=== PATIENT | male | born 1990 | race Caucasian/White ===

== ENCOUNTER 2023-08-20 05:27 | Inpatient (IN) | payer OTHER ==
[2023-08-14 14:07] LABS: BASOPHILS % (AUTO) 0.5 % (0-1); EOSINOPHILS # (AUTO) 0.2 X10'3 (0-0.9); EOSINOPHILS % (AUTO) 2.1 % (0-6); LYMPHOCYTES # (AUTO) 2.5 X10'3 (1.1-4.8); MEAN CORPUSCULAR HEMOGLOBIN 29.1 PG (27.0-31.0); MEAN CORPUSCULAR HGB CONC 33.8 g/dL (33.0-36.5); MEAN CORPUSCULAR VOLUME 86.1 FL (78-98); MEAN PLATELET VOLUME 10.3 FL (7.4-10.4); MONOCYTES # (AUTO) 0.6 X10'3 (0-0.9); MONOCYTES % (AUTO) 6.6 % (2-12); NEUTROPHILS # (AUTO) 5.1 X10'3 (1.8-7.7); NEUTROPHILS % (AUTO) 60.8 % (42-75); PRE OP HEMATOCRIT 47.1 % (42.0-52.0); PRE OP HEMOGLOBIN 15.9 g/dL (14.0-17.9); PRE OP PLATELET COUNT 179 X10'3 (140-440); PRE OP WHITE BLOOD COUNT 8.5 10'3 (4.8-10.8); RED BLOOD COUNT 5.47 X10'6 (4.70-6.10); RED CELL DISTRIBUTION WIDTH 14.7 % (11.5-14.5)
[2023-08-14 14:18] LABS: PRE OP PROTIME 10.5 SECONDS (9.0-12.0)
[2023-08-14 14:28] LABS: ALBUMIN 3.5 G/DL (3.4-5.0); ALKALINE PHOSPHATASE 53 IU/L (46-116); BLOOD UREA NITROGEN 14 MG/DL (7-18); BUN/CREATININE RATIO 14.4 (10.0-20.0); CALCIUM 9.1 MG/DL (8.5-10.1); CHLORIDE 107 MMOL/L (99-107); CREATININE 0.97 MG/DL (0.60-1.10); PRE OP ALT 33 U/L (30-65); PRE OP ANION GAP 9 (8-16); PRE OP AST 22 U/L (10-37); PRE OP BILIRUB, TOTAL 0.9 MG/DL (0.0-1.0); PRE OP GLUCOSE 140 MG/DL (70-104); PRE OP POTASSIUM 3.4 MMOL/L (3.4-5.1); PRE OP SODIUM 141 MMOL/L (135-145); TOTAL CARBON DIOXIDE 25.3 MMOL/L (24-32); TOTAL PROTEIN 7.1 G/DL (6.4-8.2); eGFR 90 ML/MIN
[2023-08-14 14:41] LABS: HEMOGLOBIN A1C 5.2 % (4.5-6.2)
[2023-08-14 15:06] LABS: BILIRUBIN,URINE NEGATIVE (Neg); COLOR,URINE YELLOW (Yellow); GLUCOSE, URINE NEGATIVE (Neg); KETONES,URINE NEGATIVE (Neg); LEUKOCYTE ESTERASE ,URINE NEGATIVE (Neg); NITRITES, URINE NEGATIVE (Neg); OCCULT BLOOD,URINE NEGATIVE (Neg); PROTEIN,URINE NEGATIVE (Neg); UROBILINOGEN,URINE 0.2 E.U/dL (0.2-1.0)
[2023-08-14 15:17] LABS: UA COLLECTION TYPE VOIDED
[2023-08-14 15:18] LABS: CLARITY,URINE CLEAR (Clear)
[2023-08-18 06:18] LABS: ABG HCO3 20.6 mmol/L (22.0-26.0); ABG OXYGEN SATURATION 96.9 % (94-97); ABG PCO2 (T) 33.2 mmHg (35.0-48.0); ABG PO2 (T) 84.1 mmHg (75.0-100.0); ALLEN'S TEST POSITIVE; FCOHb 0.5 % (0.0-3.9); FHHb 3.1 % (0.0-5.0); FMetHb 0.3 % (0.0-1.5); FO2Hb 96.1 % (94-97); MODE ROOM AIR; TOTAL HEMOGLOBIN 16.7 G/dl (14.0-17.9)
[2023-08-20] VITALS (28 sets, daily range): BP systolic 102–159; BP diastolic 50–86; PULSE 68–96; RESP 12–24; TEMP 97.7; O2SAT 91–99
[~2023-08-20] VITALS: Ht 182.9 cm; Wt 130.3 kg
[~2023-08-20 05:27] MED LIST: NO HOME MEDS; ringers solution, lacted 1,000 ML IV SCH
[2023-08-20] MEDS ORDERED: vancomycin 1,500 MG in NS 300ml IV soln IV ONE (05:30)
[2023-08-20] MEDS ORDERED: ceFAZolin inj. 3,000 MG in normal saline 100ml IV soln 100 ML IV ONE (05:30)
[2023-08-20] MEDS ORDERED: dextrose 50%-water 50ml dispensing syringe IV PRN ×2 (05:30→11:00)
[2023-08-20] MEDS ORDERED: Insulin Reg/NS 100units/100mL 100 ML IV SCH (05:30)
[2023-08-20] MEDS ORDERED: LORazepam 2 mg/ml vial IV ONE (05:30)
[2023-08-20] MEDS ORDERED: mupirocin 2% nasal ointment 1gm UD NS ONE (05:30)
[2023-08-20] MEDS ORDERED: metoprolol tartrate 12.5mg (1/2 tablet) PO ONE (05:30)
[2023-08-20] MEDS ORDERED: famotidine 20mg tablet PO ONE (05:30)
[2023-08-20] MEDS ORDERED: ceFAZolin 1000mg inj ONE (06:54)
[2023-08-20] MEDS ORDERED: BUPIVAcaine 0.5% inj/PF 0 ML ONE (06:54)
[2023-08-20] MEDS ORDERED: epiNEPHrine 1 mg/ml inj ONE (06:54)
[2023-08-20] MEDS ORDERED: vancomycin 1,000mg inj ONE (06:54)
[2023-08-20] MEDS ORDERED: MIDAZolam 1mg/ml 10ml vial ONE (07:42)
[2023-08-20] MEDS ORDERED: SUfentanil 50mcg/ml 1ml amp IV ONE ×2 (07:43)
[2023-08-20] MEDS ORDERED: rocuronium 10mg/ml inj IV ONE ×4 (07:43→08:55)
[2023-08-20] MEDS ORDERED: propofol inj 20 ML IV ONE (07:45)
[2023-08-20] MEDS ORDERED: aminocaproic acid 250 MG/1 ML inj. ONE (07:51)
[2023-08-20] MEDS ORDERED: DOBUTamine/D5W 500mg/250ml premix IV ONE (07:51)
[2023-08-20] MEDS ORDERED: protamine sulf. 10mg/ml inj. IV ONE (07:51)
[2023-08-20] MEDS ORDERED: sevoflurane 250ml liquid IH ONE (07:51)
[2023-08-20 08:38] LABS: ABG BASE EXCESS -3.5 mmol/L (-2.0-2.0); ABG HCO3 22.7 mmol/L (22.0-26.0); ABG OXYGEN SATURATION 90.5 % (94-97); ABG PCO2 45.2 mmHg (35.0-48.0); ABG PH 7.319 (7.340-7.440); ABG PO2 61.7 mmHg (75.0-100.0); CL (ABG) 105 mmol/L (99-107); FCOHb 0.1 % (0.0-3.9); FHHb 9.5 % (0.0-5.0); FMetHb 0.3 % (0.0-1.5); FO2Hb 90.1 % (94-97); GLUCOSE (ABG) 95 mg/dl (70-104); IONIZED CA (ABG) 1.16 mmol/L (1.10-1.30); TOTAL HEMOGLOBIN 14.6 G/dl (14.0-17.9)
[2023-08-20 09:09] LABS: ABG BASE EXCESS VENOUS -5.6 mmol/L (-2.0 - 2.0); ABG HCO3 VENOUS 21.9 mmol/L (21.0-28.0); ABG OXYGEN SATURATION VENOUS 76.4 % (75 - 99 %); ABG PCO2 VENOUS 50.9 mmHg (41.0-54.0); ABG PH (VENOUS) 7.252 (7.310-7.450); ABG PO2 VENOUS 44.1 mmHg (25.0-35.0); CL (ABG) 105 mmol/L (99-107); FHHb VENOUS 23.6 %; FMetHb VENOUS 0.1 % (0.0 - 0.5); FO2Hb VENOUS 76.3 %; GLUCOSE (ABG) 91 mg/dl (70-104); IONIZED CA (ABG) 1.16 mmol/L (1.10-1.30); K (ABG) 4.3 mmol/L (3.5-5.1); TOTAL HEMOGLOBIN 14.4 G/dl (14.0-17.9)
[2023-08-20 09:30] LABS: ABG BASE EXCESS VENOUS -4.1 mmol/L (-2.0 - 2.0); ABG HCO3 VENOUS 22.3 mmol/L (21.0-28.0); ABG PCO2 VENOUS 46.1 mmHg (41.0-54.0); ABG PH (VENOUS) 7.303 (7.310-7.450); CL (ABG) 104 mmol/L (99-107); FCOHb VENOUS 0.2 %; FMetHb VENOUS 0.1 % (0.0 - 0.5); FO2Hb VENOUS 86.7 %; GLUCOSE (ABG) 90 mg/dl (70-104); IONIZED CA (ABG) 1.08 mmol/L (1.10-1.30); K (ABG) 5.7 mmol/L (3.5-5.1)
[2023-08-20 09:33] LABS: ABG BASE EXCESS -2.3 mmol/L (-2.0-2.0); ABG HCO3 23.9 mmol/L (22.0-26.0); ABG OXYGEN SATURATION 98.9 % (94-97); ABG PCO2 46.6 mmHg (35.0-48.0); ABG PH 7.327 (7.340-7.440); ABG PO2 399.7 mmHg (75.0-100.0); CL (ABG) 105 mmol/L (99-107); FCOHb 0.2 % (0.0-3.9); FHHb 1.1 % (0.0-5.0); FMetHb 0.1 % (0.0-1.5); FO2Hb 98.6 % (94-97); GLUCOSE (ABG) 97 mg/dl (70-104); IONIZED CA (ABG) 1.08 mmol/L (1.10-1.30); K (ABG) 5.8 mmol/L (3.5-5.1); TOTAL HEMOGLOBIN 12.1 G/dl (14.0-17.9)
[2023-08-20 10:00] LABS: ABG BASE EXCESS -0.9 mmol/L (-2.0-2.0); ABG HCO3 25.7 mmol/L (22.0-26.0); ABG OXYGEN SATURATION 98.7 % (94-97); ABG PCO2 50.7 mmHg (35.0-48.0); ABG PH 7.322 (7.340-7.440); ABG PO2 259.9 mmHg (75.0-100.0); CL (ABG) 105 mmol/L (99-107); FCOHb 0.2 % (0.0-3.9); FHHb 1.3 % (0.0-5.0); FMetHb 0.1 % (0.0-1.5); FO2Hb 98.4 % (94-97); GLUCOSE (ABG) 146 mg/dl (70-104); IONIZED CA (ABG) 1.07 mmol/L (1.10-1.30); K (ABG) 5.7 mmol/L (3.5-5.1); TOTAL HEMOGLOBIN 12.5 G/dl (14.0-17.9)
[2023-08-20 10:16] LABS: ACT @ 1.70 U 272 SEC (193-297); ACT @ 2.84 U 371 SEC (260-420); BASELINE ACT 137 SEC (101-148)
[2023-08-20 10:19] LABS: ABG HCO3 25.4 mmol/L (22.0-26.0); ABG OXYGEN SATURATION 98.9 % (94-97); ABG PCO2 49.6 mmHg (35.0-48.0); ABG PH 7.327 (7.340-7.440); ABG PO2 201.9 mmHg (75.0-100.0); CL (ABG) 102 mmol/L (99-107); FCOHb 0.3 % (0.0-3.9); FHHb 1.1 % (0.0-5.0); FMetHb 0.3 % (0.0-1.5); FO2Hb 98.3 % (94-97); GLUCOSE (ABG) 168 mg/dl (70-104); IONIZED CA (ABG) 1.06 mmol/L (1.10-1.30); K (ABG) 5.6 mmol/L (3.5-5.1); TOTAL HEMOGLOBIN 11.7 G/dl (14.0-17.9)
[2023-08-20 10:48] LABS: ABG BASE EXCESS VENOUS -2.6 mmol/L (-2.0 - 2.0); ABG HCO3 VENOUS 24.1 mmol/L (21.0-28.0); ABG OXYGEN SATURATION VENOUS 78.6 % (75 - 99 %); ABG PCO2 VENOUS 49.3 mmHg (41.0-54.0); ABG PH (VENOUS) 7.307 (7.310-7.450); ABG PO2 VENOUS 42.7 mmHg (25.0-35.0); CL (ABG) 104 mmol/L (99-107); FCOHb VENOUS 0.3 %; FHHb VENOUS 21.3 %; FMetHb VENOUS 0.3 % (0.0 - 0.5); FO2Hb VENOUS 78.1 %; GLUCOSE (ABG) 162 mg/dl (70-104); IONIZED CA (ABG) 1.24 mmol/L (1.10-1.30); K (ABG) 5.5 mmol/L (3.5-5.1); TOTAL HEMOGLOBIN 12.7 G/dl (14.0-17.9)
[2023-08-20 10:50] LABS: ACTIVATED CLOTTING TIME 110 SEC (101-148)
[2023-08-20] MEDS ORDERED: mineral oil 133ml enema RC PRN (11:00)
[2023-08-20] MEDS ORDERED: magnesium hydroxide 30ml (MOM) UD suspension PO PRN (11:00)
[2023-08-20] MEDS ORDERED: potassium Cl 40MEQ/1/2NS 520ml 520 ML IV PRN (11:00)
[2023-08-20] MEDS ORDERED: ondansetron/PF 4mg/2ml inj IV PRN (11:00)
[2023-08-20] MEDS ORDERED: magnesium 2GM in 50ml NS 50 ML IV PRN (11:00)
[2023-08-20] MEDS ORDERED: Neutra Phos packet PO PRN (11:00)
[2023-08-20] MEDS ORDERED: acetaminophen 325mg tablet PO PRN ×2 (11:00)
[2023-08-20] MEDS ORDERED: magnesium 4gm in 100ml NS 100 ML IV PRN (11:00)
[2023-08-20] MEDS ORDERED: sodium chloride 0.45% 1,000 ML IV SCH (11:00)
[2023-08-20] MEDS ORDERED: potassium CL 10mEq/100ml bag 100 ML IV PRN (11:00)
[2023-08-20] MEDS ORDERED: insulin glargine (Lantus) pen - multi-dose SQ PRN (11:00)
[2023-08-20] MEDS ORDERED: bisacodyl 10mg suppository rectal RC PRN (11:00)
[2023-08-20] MEDS ORDERED: potassium Cl 40MEQ/270ML bag 250 ML IV PRN (11:00)
[2023-08-20] MEDS ORDERED: albumin (Human) 5% 250ml 250 ML IV PRN (11:00)
[2023-08-20] MEDS: Insulin Reg/NS 100units/100mL 100 ML IV SCH (11:00)
[2023-08-20] MEDS ORDERED: sodium phosphate inj. 15 MMOL in dextrose 5%-water 250 ML IV PRN (11:00)
[2023-08-20] MEDS ORDERED: sodium phosphate inj. 30 MMOL in dextrose 5%-water 250 ML IV PRN (11:00)
[2023-08-20] MEDS ORDERED: metoclopramide 5 mg/ml inj IV PRN (11:00)
[2023-08-20] MEDS ORDERED: potassium Cl 20 mEq SR tablet PO PRN (11:00)
[2023-08-20] MEDS ORDERED: DOBUTamine-DoBUTrex 500mg/D5W 250 ML IV SCH (11:00)
[2023-08-20] MEDS ORDERED: potassium Cl 20mEq/100mL bag 100 ML IV PRN (11:00)
--- NOTE | 2023-08-20 11:20 | NUR ---
Received to room , accompanied by MDs and surgical crew. Placed on ventilator, to cardiac rehab nurse, arterial line and PA line pressure zeroed & monitored. Chest tubes to suction at 20 cm. Banuelos cath to gravity drainage. Dressings are dry and intact. See assessment record. All vasoactive drugs are infusing via central line.
[2023-08-20] MEDS: DOBUTamine-DoBUTrex 500mg/D5W 250 ML IV SCH (11:32)
[2023-08-20 11:47] LABS: BASOPHILS % (AUTO) 0.1 % (0-1); EOSINOPHILS # (AUTO) 0.1 X10'3 (0-0.9); EOSINOPHILS % (AUTO) 0.7 % (0-6); HEMATOCRIT 42.8 % (42.0-52.0); HEMOGLOBIN 14.1 g/dl (14.0-17.9); LYMPHOCYTES % (AUTO) 6.5 % (21-51); MEAN CORPUSCULAR HEMOGLOBIN 28.7 PG (27.0-31.0); MEAN CORPUSCULAR VOLUME 86.9 FL (78-98); MEAN PLATELET VOLUME 9.8 FL (7.4-10.4); MONOCYTES # (AUTO) 0.8 X10'3 (0-0.9); MONOCYTES % (AUTO) 5.6 % (2-12); NEUTROPHILS # (AUTO) 13.1 X10'3 (1.8-7.7); NEUTROPHILS % (AUTO) 87.1 % (42-75); PLATELET COUNT 96 X10'3 (140-440); RED BLOOD COUNT 4.93 X10'6 (4.70-6.10); RED CELL DISTRIBUTION WIDTH 14.7 % (11.5-14.5)
[2023-08-20 11:52] LABS: ABG HCO3 22.4 mmol/L (22.0-26.0); ABG PH (T) 7.313 (7.340-7.440); FMetHb 0.2 % (0.0-1.5); FO2Hb 96.8 % (94-97); MODE VENT - SIMV; PATIENT TEMPERATURE 36.7; PEEP 5 cm H2O; RESPIRATORY RATE 12 b/min; TIDAL VOLUME 600 mL; TOTAL HEMOGLOBIN 15.3 G/dl (14.0-17.9)
[2023-08-20] MEDS ORDERED: nitroGLYCERIN 25mg/250mL D5W 250 ML IV SCH (11:55)
[2023-08-20 11:58] LABS: APTT 24 SECONDS (22-32); INR 1.1 INR; PROTHROMBIN TIME 11.3 SECONDS (9.0-12.0)
[2023-08-20 11:59] LABS: ALANINE AMINOTRANSFERASE 30 U/L (12-78); ALBUMIN/GLOBULIN RATIO 1.2 (1.1-1.5); ALKALINE PHOSPHATASE 40 IU/L (46-116); ANION GAP 8 (8-16); ASPARTATE AMINO TRANSFERASE 36 U/L (10-37); BILIRUBIN,TOTAL 1.1 MG/DL (0.1-1.0); BLOOD UREA NITROGEN 12 MG/DL (7-18); BUN/CREATININE RATIO 11.9 (10.0-20.0); CALCIUM 8.2 MG/DL (8.5-10.1); CHLORIDE 108 MMOL/L (99-107); CREATININE 1.01 MG/DL (0.60-1.10); GLUCOSE 146 MG/DL (70-104); MAGNESIUM 2.7 MG/DL (1.5-2.4); PHOSPHORUS 2.3 MG/DL (2.3-4.5); SODIUM 140 MMOL/L (135-145); TOTAL CARBON DIOXIDE 24.2 MMOL/L (24-32); TOTAL PROTEIN 5.6 G/DL (6.4-8.2); eCRCL 116 ML/MIN; eGFR 86 ML/MIN
[2023-08-20 12:00] LABS: POTASSIUM 4.8 MMOL/L (3.5-5.1)
--- NOTE | 2023-08-20 12:09 | NUR ---
Nutrition consult: Per EMR pt remains intubated s/p AVR today. Pt would benefit from high protein nutrition therapy education as appropriate following extubation. Will continue to follow. Addendum: 08/20/23 at [address] Amended: Links added.
[2023-08-20] MEDS: niCARDipine-NS 40mg/200ml IVPB 200 ML IV PRN (12:21)
[2023-08-20] MEDS: gabapentin 300mg capsule PO SCH ×2 (12:32→20:48)
[2023-08-20] MEDS: morphine 2 MG/ML inj. syringe IV PRN ×2 (12:42→22:33)
[2023-08-20] MEDS: morphine 4 MG/ML inj SYRINge IV PRN ×4 (13:40→23:52)
[2023-08-20 14:54] LABS: ABG BASE EXCESS -2.2 mmol/L (-2.0-2.0); ABG HCO3 22.9 mmol/L (22.0-26.0); ABG OXYGEN SATURATION 93.3 % (94-97); ABG PH (T) 7.367 (7.340-7.440); ABG PO2 (T) 67.2 mmHg (75.0-100.0); FCOHb 1.1 % (0.0-3.9); FHHb 6.6 % (0.0-5.0); FMetHb 0.1 % (0.0-1.5); FO2Hb 92.2 % (94-97); MODE VENT - SIMV; PATIENT TEMPERATURE 37.2; PEEP 10 cm H2O; RESPIRATORY RATE 12 b/min; TIDAL VOLUME 600 mL; TOTAL HEMOGLOBIN 15.3 G/dl (14.0-17.9)
--- NOTE | 2023-08-20 14:59 | NUR ---
Called Dr. Shaffer with ABG results, ph 7.37 co 40.6 po2 66 hco3 22.9, new order keep him on peep of 10 to encourage more recruitment, may place on cpap as well to "work" the patient
[2023-08-20] MEDS: ceFAZolin/D5W- 1GM premix 50 ML IV SCH ×2 (15:17→23:31)
[2023-08-20 16:47] LABS: ABG BASE EXCESS -1.3 mmol/L (-2.0-2.0); ABG HCO3 23.6 mmol/L (22.0-26.0); ABG OXYGEN SATURATION 93.9 % (94-97); ABG PCO2 (T) 41.3 mmHg (35.0-48.0); ABG PH (T) 7.377 (7.340-7.440); ABG PO2 (T) 68.9 mmHg (75.0-100.0); FCOHb 0.9 % (0.0-3.9); FMetHb 0.1 % (0.0-1.5); MODE VENT - CPAP; PATIENT TEMPERATURE 37.5; PEEP 10 cm H2O; TIDAL VOLUME 750 mL; TOTAL HEMOGLOBIN 15.1 G/dl (14.0-17.9)
[2023-08-20 17:05] LABS: BASOPHILS % (AUTO) 0.1 % (0-1); EOSINOPHILS % (AUTO) 0.1 % (0-6); HEMATOCRIT 43.4 % (42.0-52.0); HEMOGLOBIN 14.3 g/dl (14.0-17.9); LYMPHOCYTES # (AUTO) 0.4 X10'3 (1.1-4.8); LYMPHOCYTES % (AUTO) 2.6 % (21-51); MEAN CORPUSCULAR HEMOGLOBIN 28.6 PG (27.0-31.0); MEAN CORPUSCULAR HGB CONC 32.9 g/dL (33.0-36.5); MEAN CORPUSCULAR VOLUME 86.7 FL (78-98); MEAN PLATELET VOLUME 10.2 FL (7.4-10.4); MONOCYTES # (AUTO) 0.4 X10'3 (0-0.9); MONOCYTES % (AUTO) 2.9 % (2-12); NEUTROPHILS # (AUTO) 12.6 X10'3 (1.8-7.7); NEUTROPHILS % (AUTO) 94.3 % (42-75); PLATELET COUNT 123 X10'3 (140-440); RED BLOOD COUNT 5.01 X10'6 (4.70-6.10); RED CELL DISTRIBUTION WIDTH 14.8 % (11.5-14.5); WHITE BLOOD COUNT 13.3 X10'3 (4.5-11.0)
[2023-08-20 17:19] LABS: ALBUMIN 3.5 G/DL (3.4-5.0); ANION GAP 9 (8-16); BLOOD UREA NITROGEN 13 MG/DL (7-18); BUN/CREATININE RATIO 10.9 (10.0-20.0); CALCIUM 8.1 MG/DL (8.5-10.1); CHLORIDE 108 MMOL/L (99-107); CREATININE 1.19 MG/DL (0.60-1.10); GLUCOSE 132 MG/DL (70-104); MAGNESIUM 2.5 MG/DL (1.5-2.4); PHOSPHORUS 1.9 MG/DL (2.3-4.5); POTASSIUM 4.3 MMOL/L (3.5-5.1); SODIUM 142 MMOL/L (135-145); TOTAL CARBON DIOXIDE 25.5 MMOL/L (24-32); eCRCL 99 ML/MIN; eGFR 71 ML/MIN
--- NOTE | 2023-08-20 18:27 | NUR ---
Problems reprioritized. Patient report given, questions answered & plan of care reviewed with Tran MCCLURE.
--- NOTE | 2023-08-20 18:45 | NUR ---
Received report from Elzbieta RN; questions answered; pt awakens easily, following commands, TOPETE; remains on vent on spont w/fio2 at 50%, peep 10; minimal from CT, adeq UO; no gtts except insulin.
[2023-08-20] MEDS: vancomycin/NS 1 GM ADD-VANTAGE 250 ML IV SCH (19:45)
[2023-08-20] MEDS: sennosides/docusate sodium tablet PO SCH (20:00)
[2023-08-20] MEDS: atorvastatin 10mg tablet PO SCH (20:49)
[2023-08-20] MEDS: mupirocin 2% ointment 22GM NS SCH (20:49)
--- NOTE | 2023-08-20 21:30 | NUR ---
pt remains intubated, weaning peep/fio2 down as tolerated to keep sats >96%. Pt anxious when awake, BP elevated, restarted cardene gtt for BP control; good UO, minimal from CTs.
[2023-08-20 22:19] LABS: ABG BASE EXCESS -2.9 mmol/L (-2.0-2.0); ABG HCO3 21.8 mmol/L (22.0-26.0); ABG OXYGEN SATURATION 93.3 % (94-97); ABG PCO2 (T) 39.3 mmHg (35.0-48.0); ABG PH (T) 7.365 (7.340-7.440); ABG PO2 (T) 67.6 mmHg (75.0-100.0); FHHb 6.6 % (0.0-5.0); FO2Hb 92.4 % (94-97); MODE VENT - CPAP; PATIENT TEMPERATURE 37.9; PEEP 5 cm H2O; TOTAL HEMOGLOBIN 15.5 G/dl (14.0-17.9)
--- NOTE | 2023-08-20 23:15 | NUR ---
Pt extubated at 2225 w/o problems; pt on venturi mask at 50% w/good sats; titrating cardene gtt up to control BP; medicated w/morphine for good pain control, pt sleeping after medicated.
[2023-08-21] VITALS (25 sets, daily range): BP systolic 112–163; BP diastolic 55–86; PULSE 64–107; RESP 13–25; O2SAT 91–97
[2023-08-21 02:18] LABS: EOSINOPHILS % (AUTO) 0 % (0-6); MEAN CORPUSCULAR HGB CONC 32.7 g/dL (33.0-36.5); NEUTROPHILS # (AUTO) 15.9 X10'3 (1.8-7.7); PLATELET COUNT 76 X10'3 (140-440); WHITE BLOOD COUNT 17.6 X10'3 (4.5-11.0)
[2023-08-21 02:20] LABS: BASOPHILS % (AUTO) 0.1 % (0-1); HEMATOCRIT 44.3 % (42.0-52.0); HEMOGLOBIN 14.5 g/dl (14.0-17.9); LYMPHOCYTES # (AUTO) 0.8 X10'3 (1.1-4.8); LYMPHOCYTES % (AUTO) 4.4 % (21-51); MEAN CORPUSCULAR HEMOGLOBIN 28.5 PG (27.0-31.0); MEAN PLATELET VOLUME 10.4 FL (7.4-10.4); MONOCYTES # (AUTO) 0.9 X10'3 (0-0.9); NEUTROPHILS % (AUTO) 90.5 % (42-75); RED BLOOD COUNT 5.09 X10'6 (4.70-6.10); RED CELL DISTRIBUTION WIDTH 14.9 % (11.5-14.5)
[2023-08-21] MEDS: morphine 4 MG/ML inj SYRINge IV PRN ×2 (02:22→04:31)
[2023-08-21 02:35] LABS: ALANINE AMINOTRANSFERASE 24 U/L (12-78); ALBUMIN 3.6 G/DL (3.4-5.0); ALBUMIN/GLOBULIN RATIO 1.2 (1.1-1.5); ALKALINE PHOSPHATASE 42 IU/L (46-116); ANION GAP 11 (8-16); ASPARTATE AMINO TRANSFERASE 40 U/L (10-37); BLOOD UREA NITROGEN 12 MG/DL (7-18); CALCIUM 8.1 MG/DL (8.5-10.1); CHLORIDE 106 MMOL/L (99-107); GLUCOSE 136 MG/DL (70-104); MAGNESIUM 2.2 MG/DL (1.5-2.4); PHOSPHORUS 2.9 MG/DL (2.3-4.5); SODIUM 141 MMOL/L (135-145); TOTAL CARBON DIOXIDE 24.4 MMOL/L (24-32); TOTAL PROTEIN 6.5 G/DL (6.4-8.2); eCRCL 147 ML/MIN; eGFR > 90 ML/MIN
[2023-08-21] MEDS ORDERED: potassium Cl 40MEQ/270ML bag 270 ML IV PRN (03:51)
[2023-08-21] MEDS: niCARDipine-NS 40mg/200ml IVPB 200 ML IV PRN ×2 (04:02→13:12)
--- NOTE | 2023-08-21 04:42 | NUR ---
Pt doing well; hemodyn stable, PA line dc'd (verbal ok from Dr. Shaffer) pt medicated w/morphine for pain; dodzing after medicated.
[2023-08-21] MEDS: Insulin Reg/NS 100units/100mL 100 ML IV SCH (05:10)
[2023-08-21] MEDS: HYDROcodone/acetaminophen 10/325mg tab PO PRN ×3 (06:06→19:32)
--- NOTE | 2023-08-21 06:14 | NUR ---
Pt remains restless, reinforced sternal precautions multiple times; pt now requesting norco for pain; remains on cardene gtt for BP control; report given to REN Acosta; questions answered.
--- NOTE | 2023-08-21 06:36 | NUR ---
Patient in room ICU 2040. I have received report from Zeynep MCCLURE and had the opportunity to ask questions and assume patient care.
[2023-08-21] MEDS: vancomycin/NS 1 GM ADD-VANTAGE 250 ML IV SCH ×2 (07:19→19:32)
[2023-08-21] MEDS: ceFAZolin/D5W- 1GM premix 50 ML IV SCH ×2 (07:19→16:03)
[2023-08-21] MEDS: sennosides/docusate sodium tablet PO SCH ×2 (07:20→19:33)
[2023-08-21] MEDS: gabapentin 300mg capsule PO SCH ×3 (07:20→19:54)
[2023-08-21] MEDS: mupirocin 2% ointment 22GM NS SCH ×2 (07:21→20:00)
[2023-08-21] MEDS ORDERED: metoprolol tartrate 12.5mg (1/2 tablet) PO SCH (08:00)
[2023-08-21] MEDS: morphine 2 MG/ML inj. syringe IV PRN ×3 (08:52→14:41)
[2023-08-21] MEDS: aspirin 81mg tab.chew PO SCH (08:56)
--- NOTE | 2023-08-21 09:28 | NUR ---
MD Dr. Shaffer to see pt. O2 sats remain low on O2. Cardene continues with SBP. Pt out of bed to chair for breakfast. Short dizziness when first sat up but cleared. Stood well with 2 RN assist. Ate most of breakfast. On NC at 5 L with sats low 90s. About 0900 pt back to bed x 2 RNs. Stood well again. Complaining of L neck & shoulder pain once back to be. Positioned to R side with pillows. Massage to L neck given. Sats remain low 90s.
[2023-08-21] MEDS ORDERED: insulin Lispro (HumaLOG) vial - multi-dose SQ SCH (09:35)
[2023-08-21] MEDS ORDERED: metoprolol tartrate 12.5mg (1/2 tablet) PO ONE (13:55)
--- NOTE | 2023-08-21 15:22 | NUR ---
MD Visit Dr. Shaffer to see pt. and Okay to D/C nicardipine as well as art line. Art line out, cath tip intact, pressure held and pressure dressing (2x2 & 1" foam tape)
--- NOTE | 2023-08-21 19:00 | NUR ---
Received report from REN Acosta; questions answered; pt sitting up in chair, eating dinner, offers no complaints; VSS, SR, sats good on 5L NC; miinimal from CTs.
[2023-08-21] MEDS: atorvastatin 10mg tablet PO SCH (19:32)
[2023-08-21] MEDS: metoprolol tartrate 25mg tablet PO SCH (19:33)
[2023-08-21] MEDS: DOBUTamine-DoBUTrex 500mg/D5W 250 ML IV SCH (19:49)
[2023-08-21] MEDS ORDERED: nitroGLYCERIN-Tridil 50MG/D5W 250 ML IV SCH (21:00)
[2023-08-21] MEDS ORDERED: warfarin 5mg tablet PO ONE (21:30)
--- NOTE | 2023-08-21 22:00 | NUR ---
Pt ambulated in sanchez w/assist; tolerated well; medicated for pain once back to bed; sleeping when not disturbed.
[2023-08-22] VITALS (17 sets, daily range): BP systolic 106–156; BP diastolic 56–93; PULSE 51–91; RESP 10–22; TEMP 97.5–98.7; O2SAT 92–97
[2023-08-22] MEDS: ceFAZolin/D5W- 1GM premix 50 ML IV SCH (00:01)
[2023-08-22 02:39] LABS: BASOPHILS % (AUTO) 0.2 % (0-1); EOSINOPHILS % (AUTO) 0 % (0-6); HEMATOCRIT 40.2 % (42.0-52.0); HEMOGLOBIN 13.1 g/dl (14.0-17.9); LYMPHOCYTES # (AUTO) 1.5 X10'3 (1.1-4.8); LYMPHOCYTES % (AUTO) 6.4 % (21-51); MEAN CORPUSCULAR HEMOGLOBIN 28.4 PG (27.0-31.0); MEAN CORPUSCULAR HGB CONC 32.5 g/dL (33.0-36.5); MEAN CORPUSCULAR VOLUME 87.6 FL (78-98); MEAN PLATELET VOLUME 10.4 FL (7.4-10.4); MONOCYTES # (AUTO) 2.2 X10'3 (0-0.9); MONOCYTES % (AUTO) 9.5 % (2-12); NEUTROPHILS # (AUTO) 19.6 X10'3 (1.8-7.7); NEUTROPHILS % (AUTO) 83.9 % (42-75); RED BLOOD COUNT 4.59 X10'6 (4.70-6.10); RED CELL DISTRIBUTION WIDTH 15.1 % (11.5-14.5); WHITE BLOOD COUNT 23.4 X10'3 (4.5-11.0)
[2023-08-22 02:44] LABS: PROTHROMBIN TIME 10.6 SECONDS (9.0-12.0)
[2023-08-22 02:48] LABS: ALBUMIN 3.2 G/DL (3.4-5.0); ANION GAP 5 (8-16); BLOOD UREA NITROGEN 16 MG/DL (7-18); CALCIUM 8.3 MG/DL (8.5-10.1); CHLORIDE 103 MMOL/L (99-107); CREATININE 0.84 MG/DL (0.60-1.10); GLUCOSE 139 MG/DL (70-104); MAGNESIUM 2.7 MG/DL (1.5-2.4); PHOSPHORUS 2.4 MG/DL (2.3-4.5); POTASSIUM 5.2 MMOL/L (3.5-5.1); SODIUM 137 MMOL/L (135-145); TOTAL CARBON DIOXIDE 29.1 MMOL/L (24-32); eCRCL 140 ML/MIN; eGFR > 90 ML/MIN
[2023-08-22 03:04] LABS: PLATELET COUNT 108 X10'3 (140-440)
[2023-08-22 03:43] LABS: TOTAL CELLS COUNTED 100
[2023-08-22 03:44] LABS: PLATELET ESTIMATE DECREASED
--- NOTE | 2023-08-22 04:00 | NUR ---
No change in status; pt sleeping when not disturbed; VSS, good UO; denies need for pain meds
[2023-08-22] MEDS: HYDROcodone/acetaminophen 10/325mg tab PO PRN ×3 (05:20→20:54)
--- NOTE | 2023-08-22 06:16 | NUR ---
Report given to REN Hurst; questions answered; unique d/c'd; pt medicated w/norco for c/o pain.
--- NOTE | 2023-08-22 06:30 | NUR ---
Patient in room PCU 3019. I have received report from Arina alexis RN and had the opportunity to ask questions and assume patient care.
[2023-08-22] MEDS: pantoprazole 40mg Tablet.DR PO SCH (07:23)
[2023-08-22] MEDS: mupirocin 2% ointment 22GM NS SCH (07:23)
[2023-08-22] MEDS: sennosides/docusate sodium tablet PO SCH ×2 (07:24→20:00)
[2023-08-22] MEDS: metoprolol tartrate 25mg tablet PO SCH ×2 (07:24→20:53)
[2023-08-22] MEDS: gabapentin 300mg capsule PO SCH (07:24)
[2023-08-22] MEDS: aspirin 81mg tab.chew PO SCH (07:25)
[2023-08-22] MEDS ORDERED: potassium Cl 20mEq/100mL bag 100 ML IV PRN (07:45)
[2023-08-22] MEDS ORDERED: potassium Cl 40MEQ/1/2NS 520ml 520 ML IV PRN (07:45)
[2023-08-22] MEDS ORDERED: magnesium 2GM in 50ml NS 50 ML IV PRN (07:45)
[2023-08-22] MEDS ORDERED: potassium CL 10mEq/100ml bag 100 ML IV PRN (07:45)
[2023-08-22] MEDS ORDERED: potassium Cl 20 mEq SR tablet PO PRN ×2 (07:45)
[2023-08-22] MEDS ORDERED: potassium Cl 40MEQ/270ML bag 250 ML IV PRN (07:45)
[2023-08-22] MEDS ORDERED: magnesium 4gm in 100ml NS 100 ML IV PRN (07:45)
[2023-08-22] MEDS ORDERED: furosemide 40mg/4ml inj IV ONE (08:25)
[2023-08-22] MEDS: magnesium Cl slow-release 64mg tablet PO SCH ×2 (08:39→20:51)
--- NOTE | 2023-08-22 09:33 | NUR ---
Received report from REN Hurst. Awaiting patient arrival to room 3019.
--- NOTE | 2023-08-22 09:36 | NUR ---
Report called to Hiwot Collins RN. pt to be transferred to 3019.
--- NOTE | 2023-08-22 10:11 | NUR ---
Pt transferred to 3019 with belongings in stable condition. Pt ambulated from ICU to PCU.
--- NOTE | 2023-08-22 15:01 | NUR ---
Nutrition consult: Pt seen at bedside for written and verbal heart healthy high protein nutrition therapy education. Pt endorses a good appetite though states he's not getting full from meals. Pt agrees to double protein TID for satiety, d/w dietary. Pt reports food allergy and dislike to blue cheese stating it makes his tongue tingle, d/w dietary and updated EMR. Pt denies difficulty chewing or swallowing though does report some difficulty feeding self with incision site however declines need for texture modification for assistance. Pt provided with RD contact information and encouraged to reach out if needed. Will remain available. Addendum: 08/22/23 at [address] Amended: Links added.
[2023-08-22] MEDS: heparin, porcine 5000 units/ml vial SQ SCH ×2 (15:55→23:02)
--- NOTE | 2023-08-22 18:18 | NUR ---
Problems reprioritized. Patient report given, questions answered & plan of care reviewed with REN Desai. Patient stable at transfer of care.
[2023-08-22] MEDS: atorvastatin 10mg tablet PO SCH (21:00)
[2023-08-22] MEDS ORDERED: warfarin 5mg tablet PO ONE (21:00)
--- NOTE | 2023-08-22 21:00 | NUR ---
PT IS LITTLE RESTLESS PT'S INCISION AT CHEST WAS BLEEDING A LITTLE; CLEANED AND APPLIED DRY GUAGE, JUST A LITTLE TINGE IS SEEN. CALLED DR. FRANCOIS AND INFORMED. HE SUGGESTED TO GIVE ALL MEDS (HEP AND WARFARIN).
[2023-08-23] VITALS (9 sets, daily range): BP systolic 122–130; BP diastolic 61–81; PULSE 58–83; RESP 12–22; TEMP 97.4–98.2; O2SAT 92–98
[2023-08-23] MEDS: heparin, porcine 5000 units/ml vial SQ SCH ×4 (03:06→20:42)
[2023-08-23] MEDS: HYDROcodone/acetaminophen 10/325mg tab PO PRN ×3 (04:44→20:44)
--- NOTE | 2023-08-23 06:15 | NUR ---
Problems reprioritized. Patient report given, questions answered & plan of care reviewed with Hiwot MCCLURE.
[2023-08-23 07:31] LABS: BASOPHILS # (AUTO) 0.1 X10'3 (0-0.2); BASOPHILS % (AUTO) 0.4 % (0-1); EOSINOPHILS # (AUTO) 0.1 X10'3 (0-0.9); EOSINOPHILS % (AUTO) 0.4 % (0-6); HEMATOCRIT 38.2 % (42.0-52.0); HEMOGLOBIN 12.3 g/dl (14.0-17.9); LYMPHOCYTES # (AUTO) 3.4 X10'3 (1.1-4.8); LYMPHOCYTES % (AUTO) 22.2 % (21-51); MEAN CORPUSCULAR HEMOGLOBIN 28.2 PG (27.0-31.0); MEAN CORPUSCULAR HGB CONC 32.2 g/dL (33.0-36.5); MEAN CORPUSCULAR VOLUME 87.6 FL (78-98); MEAN PLATELET VOLUME 10.5 FL (7.4-10.4); MONOCYTES # (AUTO) 1.6 X10'3 (0-0.9); MONOCYTES % (AUTO) 10.3 % (2-12); NEUTROPHILS # (AUTO) 10.1 X10'3 (1.8-7.7); NEUTROPHILS % (AUTO) 66.7 % (42-75); PLATELET COUNT 119 X10'3 (140-440); RED BLOOD COUNT 4.36 X10'6 (4.70-6.10); RED CELL DISTRIBUTION WIDTH 14.9 % (11.5-14.5); WHITE BLOOD COUNT 15.2 X10'3 (4.5-11.0)
[2023-08-23 07:39] LABS: INR 1.5 INR; PROTHROMBIN TIME 15.3 SECONDS (9.0-12.0)
[2023-08-23 07:42] LABS: ALBUMIN 2.9 G/DL (3.4-5.0); ANION GAP 5 (8-16); BLOOD UREA NITROGEN 22 MG/DL (7-18); BUN/CREATININE RATIO 26.2 (10.0-20.0); CHLORIDE 106 MMOL/L (99-107); CREATININE 0.84 MG/DL (0.60-1.10); GLUCOSE 100 MG/DL (70-104); MAGNESIUM 2.4 MG/DL (1.5-2.4); POTASSIUM 4.2 MMOL/L (3.5-5.1); SODIUM 140 MMOL/L (135-145); TOTAL CARBON DIOXIDE 29.4 MMOL/L (24-32); eCRCL 140 ML/MIN; eGFR > 90 ML/MIN
[2023-08-23] MEDS: magnesium Cl slow-release 64mg tablet PO SCH ×2 (07:48→20:40)
[2023-08-23] MEDS: aspirin 81mg tab.chew PO SCH (07:48)
[2023-08-23] MEDS: pantoprazole 40mg Tablet.DR PO SCH (07:48)
[2023-08-23] MEDS: sennosides/docusate sodium tablet PO SCH ×2 (07:48→20:39)
[2023-08-23] MEDS: metoprolol tartrate 25mg tablet PO SCH ×2 (07:49→20:40)
--- NOTE | 2023-08-23 18:27 | NUR ---
Problems reprioritized. Patient report given, questions answered & plan of care reviewed with Shamika HOWELL, patient stable at transfer of care.
[2023-08-23] MEDS: atorvastatin 10mg tablet PO SCH (20:39)
[2023-08-23] MEDS ORDERED: warfarin 5mg tablet PO ONE (21:00)
[2023-08-24 02:00] VITALS: BP 131/78; PULSE 68; RESP 12; TEMP 97.7; O2SAT 92
[2023-08-24] MEDS: heparin, porcine 5000 units/ml vial SQ SCH ×2 (02:54→08:04)
[2023-08-24] MEDS: HYDROcodone/acetaminophen 10/325mg tab PO PRN (02:57)
--- NOTE | 2023-08-24 04:22 | NUR ---
ELECTROCHEMIST documentation: I have reviewed and agree with assessment performed and documented by SIMON Castillo
[2023-08-24 06:23] LABS: PROTHROMBIN TIME 20.4 SECONDS (9.0-12.0)
[2023-08-24 06:31] LABS: BASOPHILS % (AUTO) 0.4 % (0-1); EOSINOPHILS # (AUTO) 0.2 X10'3 (0-0.9); EOSINOPHILS % (AUTO) 1.5 % (0-6); HEMATOCRIT 38.3 % (42.0-52.0); HEMOGLOBIN 12.5 g/dl (14.0-17.9); LYMPHOCYTES # (AUTO) 3.6 X10'3 (1.1-4.8); LYMPHOCYTES % (AUTO) 31.8 % (21-51); MEAN CORPUSCULAR HEMOGLOBIN 28.7 PG (27.0-31.0); MEAN CORPUSCULAR HGB CONC 32.8 g/dL (33.0-36.5); MEAN CORPUSCULAR VOLUME 87.4 FL (78-98); MEAN PLATELET VOLUME 10.2 FL (7.4-10.4); MONOCYTES # (AUTO) 0.9 X10'3 (0-0.9); MONOCYTES % (AUTO) 8.3 % (2-12); NEUTROPHILS # (AUTO) 6.6 X10'3 (1.8-7.7); PLATELET COUNT 130 X10'3 (140-440); RED BLOOD COUNT 4.38 X10'6 (4.70-6.10); RED CELL DISTRIBUTION WIDTH 14.8 % (11.5-14.5); WHITE BLOOD COUNT 11.3 X10'3 (4.5-11.0)
[2023-08-24 06:32] LABS: ALBUMIN 2.9 G/DL (3.4-5.0); ANION GAP 5 (8-16); BLOOD UREA NITROGEN 17 MG/DL (7-18); BUN/CREATININE RATIO 23.9 (10.0-20.0); CALCIUM 8.2 MG/DL (8.5-10.1); CHLORIDE 104 MMOL/L (99-107); CREATININE 0.71 MG/DL (0.60-1.10); GLUCOSE 91 MG/DL (70-104); MAGNESIUM 2.2 MG/DL (1.5-2.4); POTASSIUM 3.8 MMOL/L (3.5-5.1); SODIUM 139 MMOL/L (135-145); TOTAL CARBON DIOXIDE 29.9 MMOL/L (24-32); eCRCL 165 ML/MIN; eGFR > 90 ML/MIN
--- NOTE | 2023-08-24 07:07 | NUR ---
Patient in room PCU 3019. I have received report from SIMON HOWELL and had the opportunity to ask questions and assume patient care.
[2023-08-24 07:20] VITALS: BP 124/68; PULSE 56; RESP 18; TEMP 98.1; O2SAT 93
[2023-08-24] MEDS: sennosides/docusate sodium tablet PO SCH (07:58)
[2023-08-24] MEDS: magnesium Cl slow-release 64mg tablet PO SCH (07:58)
[2023-08-24 07:59] VITALS: BP_SYST 124; PULSE 67
[2023-08-24] MEDS: pantoprazole 40mg Tablet.DR PO SCH (07:59)
[2023-08-24] MEDS: metoprolol tartrate 25mg tablet PO SCH (07:59)
[2023-08-24] MEDS: aspirin 81mg tab.chew PO SCH (08:00)
[2023-08-24 08:12] VITALS: RESP 18; O2SAT 93
--- NOTE | 2023-08-24 08:58 | NUR ---
AMBULATE AROUND THE UNIT, ASSIST PATIENT TO TOILET POST WALKING. REMIND PATIENT TO CALL FOR ASSISTANCE OFF TOILET. CHECKED ON PATIENT AND HE MOVED HIMSELF TO THE CHAIR SOLO. AGAIN ENCOURAGED STERNAL PRECAUTIONS.
--- NOTE | 2023-08-24 09:16 | NUR ---
CONTINUE TO ENCOURAGE IS USE.
[2023-08-24] MEDS ORDERED: HYDR-3972 PO (09:24)
[2023-08-24] MEDS ORDERED: ATOR10TA PO (09:24)
[2023-08-24] MEDS ORDERED: WARF-65 PO (09:24)
[2023-08-24] MEDS ORDERED: LOP25T PO (09:24)
[2023-08-24] MEDS ORDERED: ASPI81TA53 PO (09:24)
== END 2023-08-24 10:25 | disposition home or self-care (01) | DRG 221 ==
LOC: PAS IN 05:27 → ICU 2S 11:20 → PCU 3S 08-22 10:17 → SUR 3N 08-22 12:35 → PCU 3S 08-22 12:36
PROVIDERS: ADMIT Thoracic Surgery (Cardiothoracic Vascular Surgery); ATTEND Thoracic Surgery (Cardiothoracic Vascular Surgery)
PROC: 5A1221Z Performance of Cardiac Output, Continuous (ICD-10-PCS; 2023-08-20)
PROC: B24BZZ4 Ultrasonography of Heart with Aorta, Transesophageal (ICD-10-PCS; 2023-08-20)
PROC: 02RF0JZ Replacement of Aortic Valve with Synthetic Substitute, Open Approach (ICD-10-PCS; principal; 2023-08-20 07:51)
DX: I35.1 Nonrheumatic aortic (valve) insufficiency (principal); Z00.6 Encounter for examination for normal comparison and control in clinical research program; I10 Essential (primary) hypertension; G43.909 Migraine, unspecified, not intractable, without status migrainosus; Z88.1 Allergy status to other antibiotic agents
CPT/HCPCS: 93312; 93325; Z7506; Z7508; 36415; 36600; 71045; 71046; 76376; 80048; 80053; 81003; 82330; 82435; 82803; 82947; 82948; 83036; 83735; 84100; 84132; 84295; 85007; 85018; 85025; 85347; 85610; 85730; 86885; 86900; 86901; 86920; 87081; 93005; 93880; 93970; 94002; 94010; 94668; 94760; 97161; 97530; A4333; A4615; A4618; A6213; A6258; A6402; A6449; A7000; A7048; C1751; G0378; J0171; J0690; J1250; J1644; J1815; J1940; J2060; J2250; J2270; J2704; J2720; J3370; J3475; J3480; J3490; J7030; J7040; J7050; J7060; J7120; P9045; S0020

== ENCOUNTER 2023-08-25 10:20 | Outpatient (CLI) | payer OTHER ==
[~2023-08-25 10:20] MED LIST changes: +ASPI81TA53 PO; +ATOR10TA PO; +HYDR-3972 PO; +LOP25T PO; +WARF-65 PO; -ringers solution, lacted 1,000 ML IV SCH
[2023-08-25 11:25] LABS: INR 1.6 INR; PROTHROMBIN TIME 16.7 SECONDS (9.0-12.0)
== END 2023-08-25 23:59 | disposition home or self-care (01) ==
LOC: LAB 10:20
PROVIDERS: ATTEND Thoracic Surgery (Cardiothoracic Vascular Surgery)
DX: Z00.01 Encounter for general adult medical examination with abnormal findings (principal)
CPT/HCPCS: 36415; 85610

== ENCOUNTER 2023-08-27 13:48 | Outpatient (CLI) | payer OTHER ==
[2023-08-27 15:18] LABS: INR 1.5 INR; PROTHROMBIN TIME 15.6 SECONDS (9.0-12.0)
== END 2023-08-27 23:59 | disposition home or self-care (01) ==
LOC: LAB 13:48
PROVIDERS: ATTEND Thoracic Surgery (Cardiothoracic Vascular Surgery)
DX: Z00.01 Encounter for general adult medical examination with abnormal findings (principal)
CPT/HCPCS: 36415; 85610